=== PATIENT | female | born 2000 | race Two or more races ===

== ENCOUNTER 2023-11-25 11:56 | Emergency (ER) | payer BC ==
[~2023-11-25] VITALS: Ht 172.7 cm; Wt 57.6 kg
[2023-11-25 12:04] VITALS: BP 134/73; TEMP 97.9; O2SAT 99
== END 2023-11-25 12:35 | disposition home or self-care (01) ==
LOC: ER 12:07
DX: S00.01XA Abrasion of scalp, initial encounter (principal); W22.09XA Striking against other stationary object, initial encounter; Y93.89 Activity, other specified; Y92.098 Other place in other non-institutional residence as the place of occurrence of the external cause; Y99.8 Other external cause status